=== PATIENT | male | born 1985 | race Asian ===

== ENCOUNTER 2018-07-10 16:36 | Emergency (ER) | payer BC ==
--- NOTE | 2018-07-10 17:09 | EDPHY ---
H & P Stated Complaint: fever, cough, body aches x2 days Time Seen by Provider: 07/10/18 17:29 HPI/ROS: HPI: This is a 33-year-old male who presents with Chief Complaint: Fever, cough, body aches Location: Body Quality: Fever, cough, body aches Duration: 2-3 days Signs and Symptoms: + subjective fever, no nausea, no vomiting, + diarrhea, no urinary symptoms, no chest pain, no shortness of breath, no wheezing,+ nonproductive cough, no sore throat, no neck stiffness, no joint pain, no swollen glands, no ear pain, no rash Timing: Acute, constant Severity: Moderate Context: Patient presents with multiple constitutional complaints of sudden onset of subjective low-grade fever, nonproductive cough, body aches and sore throat for the last 2-3 days. Patient has had no foreign travel. Patient has no primary care provider. Patient's last dose of Tylenol was yesterday. Did not note any fevers today. He has had 2-3 loose stools yesterday and today. Denies any recent antibiotic use. Did not receive influenza vaccine this year. No history of lung disease. Nonsmoker. Patient is [place]ut[place] speaking, interpreting, patient didn't want to use ' Skout'. Modifying Factors: Tylenol Comment: ROS: A comprehensive 10 system review of systems is otherwise negative aside from elements mentioned in the history of present illness. MEDICAL/SURGICAL/SOCIAL HISTORY: Medical history: Generally healthy. Does not take any regular medications. Surgical history: Right leg surgery Social history: . Nonsmoker. Denies drug use. Family history noncontributory. CONSTITUTIONAL: Ill but nontoxic-appearing adult male, awake and alert, no obvious distress HEENT: Atraumatic and normocephalic, PERRL, EOMI. Nares patent; no rhinorrhea; no nasal mucosal edema. Tympanic membranes clear. Oropharynx clear, no exudate and moist pink mucosa. Airway patent. No lymphadenopathy. No meningismus. Cardiovascular: Normal S1/S2, regular rate, regular rhythm, without murmur rub or gallop. PULMONARY/CHEST: Symmetrical and nontender. Clear to auscultation bilaterally. Good air movement. No accessory muscle usage. ABDOMEN: Soft, nondistended, nontender, no rebound, no guarding, no peritoneal signs, no masses or organomegaly. No CVAT. EXTREMITIES: 2/2 pulses, strength 5/5, no deformities, no clubbing, no cyanosis or edema. NEUROLOGICAL: no focal neuro deficits. GCS 15. SKIN: Warm and dry, no erythema. no rash. Good capillary refill. Source: Telephone Cleaner Exam Limitations: Language barrier (Bhutanese) - Personal History Current Tetanus/Diphtheria Vaccine: Yes Current Tetanus Diphtheria and Acellular Pertussis (TDAP): Yes - Medical/Surgical History Hx Asthma: No Hx Chronic Respiratory Disease: No Hx Diabetes: No Hx Cardiac Disease: No Hx Renal Disease: No Hx Cirrhosis: No Hx Alcoholism: No Hx HIV/AIDS: No Hx Splenectomy or Spleen Trauma: No Other PMH: rt leg surgery - Social History Smoking Status: Never smoked Constitutional: Initial Vital Signs Temperature (C) 36.5 C 07/10/18 16:37 Heart Rate 71 07/10/18 16:37 Respiratory Rate 16 07/10/18 16:37 Blood Pressure 113/68 07/10/18 16:37 O2 Sat (%) 98 07/10/18 16:37 O2 Delivery Mode Room Air Allergies/Adverse Reactions: No Known Allergies Allergy (Unverified 10/02/16 20:04) Home Medications: Medication Instructions Recorded Benzonatate [Tessalon Pearles (RX)] 100 mg PO Q4 PRN #15 cap 07/10/18 Oseltamivir Phosphate [Tamiflu 75 75 mg PO BID 5 Days #10 cap 07/10/18 mg (*)] Medical Decision Making - Diagnostics Imaging Results: Imaging Impressions Chest X-Ray 07/10/18 17:22 Impression: No pneumonia. ED Course/Re-evaluation: Vital signs reviewed and stable upon arrival. No systemic signs. Influenza swab, chest x-ray ordered Patient given Tessalon Perles, ibuprofen 800 mg, p.o. Zofran 4 mg Abdomen is soft and nontender and doubt surgical process or need for imaging. 1756: Checks x-ray my read shows no opacity, no effusion, no widened mediastinum, no pneumothorax. 1855: Notified by tech that patient is influenza A positive. Due to patient not having primary care provider and concern for progression; will start patient on Tamiflu Advised supportive care [facility] This patient was seen under the supervision of my secondary supervising physician. I evaluated care for this patient independently. Discussed this patient with Dr. Phillips who did not see the patient. Differential Diagnosis: Adult fever including but not limited to viral syndromes including influenza, urinary tract infection, pneumonia and sepsis. - Data Points Laboratory Results: 07/10/18 18:12 Nasal Influenza A PCR FLU A DETECTED H (NEGATIVE) Nasal Influenza B PCR NEGATIVE FOR FLU B (NEGATIVE) Medications Given: Discontinued Medications Benzonatate (Tessalon Pearles) 200 mg PO EDNOW ONE Stop: 07/10/18 17:23 Last Admin: 07/10/18 18:00 Dose: 200 mg Ibuprofen (Motrin) 800 mg PO EDNOW ONE Stop: 07/10/18 17:23 Last Admin: 07/10/18 18:00 Dose: 800 mg Ondansetron HCl (Zofran Odt) 4 mg PO EDNOW ONE Stop: 07/10/18 17:23 Last Admin: 07/10/18 18:00 Dose: 4 mg Departure - Departure Disposition: Home, Routine, Self-Care Clinical Impression: Influenza A Condition: Good Instructions: Influenza (ED) Additional Instructions: Rest as much as possible until you are feeling better. Consume a minimum of 8-10 glasses of water or electrolyte fluid replacement drinks that include Gatorade, Powerade, Pedialyte. Eat a bland diet for the next 48 hours and then slowly advance as tolerated. Take Tamiflu as directed. Do not skip a dose. Tamiflu is not a cure. It may take 1-2 days off you illness. Take Tylenol 650 mg every 4 hr and/or ibuprofen 600-800 mg every 8 hr with food as needed for pain, fever, headache. Take Tessalon Perles every 4 hr as needed for cough. Please wash your hands frequently, cover your cough, and stay home until you are symptom free. Referrals: [facility],. [Clinic] - 5-7 days, if not improved Prescriptions: Benzonatate [Tessalon Pearles (RX)] 100 mg PO Q4 PRN #15 cap PRN Reason: Cough, Moderate Oseltamivir Phosphate [Tamiflu 75 mg (*)] 75 mg PO BID 5 Days #10 cap
[2018-07-10] MEDS ORDERED: BENZONATATE 100 MG CAP PO ONE (17:22)
[2018-07-10] MEDS ORDERED: IBUPROFEN 800 MG TAB PO ONE (17:22)
[2018-07-10] MEDS ORDERED: ONDANSETRON DISINTEGRATING 4 MG TAB PO ONE (17:22)
[2018-07-10 19:07] VITALS: BP 99/65
== END 2018-07-10 19:11 | disposition home or self-care (01) ==
DX: J10.1 Influenza due to other identified influenza virus with other respiratory manifestations (principal)